=== PATIENT | male | born 1970 | race Caucasian/White ===

== ENCOUNTER 2021-02-26 11:34 | Emergency (ER) | payer OTHER ==
[2021-02-26 11:50] VITALS: BP 129/85; PULSE 76; TEMP 97.5; BMI 27.8
[2021-02-26] MEDS ORDERED: FAMOTIDINE 20 MG TABLET PO ONE (12:23)
[2021-02-26] MEDS ORDERED: DEXAMETHASONE LIQUID 0.5 MG/5 ML PO ONE (12:23)
[2021-02-26] MEDS ORDERED: FAMOTIDINE 20 MG TABLET ONE (12:26)
[2021-02-26] MEDS ORDERED: DEXAMETHASONE SOD PHOSPHATE 10 MG/1 ML VIAL ONE (12:26)
== END 2021-02-26 12:33 | disposition home or self-care (01) ==
LOC: JERFT 11:34
DX: L23.7 Allergic contact dermatitis due to plants, except food (principal)
CPT/HCPCS: 99283-25